=== PATIENT | female | born 1975 | race Caucasian/White ===

== ENCOUNTER → 2016-10-09 | Outpatient (CLI) | payer BC ==
[~2016-10-09] MED LIST: ADVIL,NUPRIN,M200 MG PO; ATARAX10 MG PO; AUGMENTIN875 MG PO; AVINZA30 MG PO; BENADRYL25 MG PO; BRINTELLIX10 MG PO; CRESTOR10 MG PO; CRESTOR20 MG PO; CYMBALTA60 MG PO; Cymbalta PO; DOMPERIDONE PO; DURAGESIC100 MCG TD; FENOFIBRATE145 M1 PO; FENTORA400 MCG BC; Flagyl PO; KEFLEX500 MG PO; Kadian PO; LEVOFLOXACIN500 MG PO; LYRICA100 MG PO; LYRICA150 MG PO; LYRICA300 MG; MELOXICAM15 MG PO; MORPHINE SULFAT30 M1 PO; NEURONTIN300 MG PO; OMEPRAZOLE40 M1 PO; ORAMORPH SR15 MG PO; PERCOCET 10-321 EACH PO; PERCOCET 5/31 TABLET PO; PRAVACHOL10 MG PO; PREDNISONE10 MG PO; PRILOSEC40 MG PO; SKELAXIN400 M1 PO; SOMA250 MG PO; SOMA350 MG PO; SYMBICORT60 INHALAT IH; VENTOLIN HFA18 GM IH; VICODIN ES 71 TABLET PO; ZOFRAN8 MG PO; ZOLPIDEM TARTRA10 MG PO; [UNRECOGNIZED DRUG - OTHER] PO
== END | disposition home or self-care (01) ==
LOC: CDC 11:32
DX: G56.22 Lesion of ulnar nerve, left upper limb (principal); R94.31 Abnormal electrocardiogram [ECG] [EKG]
CPT/HCPCS: 93000

== ENCOUNTER → 2017-03-18 | Outpatient (CLI) | payer BC | END | disposition home or self-care (01) | LOC: RES 13:00 | DX: R94.2 Abnormal results of pulmonary function studies (principal) | CPT/HCPCS: 94060; 94726; 94729 ==